=== PATIENT | male | born 1975 | race Asian ===

== ENCOUNTER → 2021-03-23 16:04 | Outpatient (CLI) | payer BC, SELFPAY | PROVIDERS: PCP Family Medicine; Visit Provider Nurse Practitioner | DX: Z20.822 Contact with and (suspected) exposure to COVID-19 (principal) | CPT/HCPCS: C9803; U0003; U0005 ==

== ENCOUNTER → 2021-03-27 13:19 | Outpatient (CLI) | payer BC, SELFPAY | PROVIDERS: Visit Provider Nurse Practitioner | DX: Z20.822 Contact with and (suspected) exposure to COVID-19 (principal) | CPT/HCPCS: C9803; U0003; U0005 ==

== ENCOUNTER 2021-03-27 13:26 | Emergency (ER) | payer BC, SELFPAY ==
[2021-03-27 13:26] VITALS: BP 159/100; PULSE 112; RESP 18; TEMP 37.1; O2SAT 99; BMI 27.3
--- NOTE | 2021-03-27 14:00 | PC.NURSE ---
DR SPOKE WITH PT REGARDING REGEN-COV INFUSION. PT IS SPEAKING WITH
--- NOTE | 2021-03-27 14:17 | HMH.EDUTC ---
[facility] [place] Disposition Condition on Discharge: Good <Isaias Franks - Last Filed: 03/27/21 21:19> Condition on Discharge: Fair <Diana Monet - Last Filed: 03/27/21 22:27> Clinical Impression: Urinary tract infection Qualifiers: Urinary tract infection type: acute cystitis Hematuria presence: with hematuria Qualified Code(s): N30.01 - Acute cystitis with hematuria Disposition: Home, Self-Care Prescriptions: Cefdinir [Omnicef 300mg Capsule] 300 mg PO BID #14 cap Transmission Status: Received by [facility] #[id number] Referrals: Provider,Referral, [Primary Care Provider] - Medical Decision Making - Lab Data Result diagrams: 03/27/21 15:05 03/27/21 15:05 <Isaias Franks - Last Filed: 03/27/21 21:19> - Suman Inquiry Pt receiving controlled substance: No Suman was queried for this patient: No - Lab Data Result diagrams: 03/27/21 15:05 03/27/21 15:05 <Diana Monet - Last Filed: 03/27/21 22:27> Vital Signs: 03/27/21 13:26 03/27/21 14:46 03/27/21 16:44 Temperature 98.8 F 98.4 F Temperature Source Oral Oral Pulse Rate 110 H Pulse Rate [Left Radial] 112 H 102 H Respiratory Rate 18 18 16 Blood Pressure 141/93 H Blood Pressure [Right Arm] 159/100 H 152/85 H Blood Pressure Mean 109 Blood Pressure Mean [Right Arm] 119 107 Blood Pressure Source [Right Arm] Automatic Cuff Automatic Cuff Blood Pressure Position Blood Pressure Position [Right Arm] Sitting Sitting 02 Sat by Pulse Oximetry 99 100 98 Oxygen Delivery Method Room Air Room Air Room Air 03/27/21 17:00 03/27/21 19:16 Temperature 98.4 F Temperature Source Oral Pulse Rate 107 H 107 H Pulse Rate [Left Radial] Respiratory Rate 16 18 Blood Pressure 147/87 H 147/87 H Blood Pressure [Right Arm] Blood Pressure Mean 108 Blood Pressure Mean [Right Arm] Blood Pressure Source [Right Arm] Blood Pressure Position Sitting Blood Pressure Position [Right Arm] 02 Sat by Pulse Oximetry 98 Oxygen Delivery Method Room Air Room Air - Lab Data Lab Results 03/27/21 14:39: SARS-CoV-2 (PCR) Not detected, Influenza A Untype (PCR) Not detected, Influenza Type B (PCR) Not detected 03/27/21 15:05: WBC 20.9 H*, RBC 4.74, Hgb 13.8 L, Hct 41.2 L, MCV 86.9, MCH 29.1, MCHC 33.4, RDW 14.4, Plt Count 241, MPV 8.5, Neut % (Auto) 86.0 H, Lymph % (Auto) 8.4 L, Yell % (Auto) 4.7, Eos % (Auto) 0.5, Baso % (Auto) 0.3, Neut # (Auto) 17.9 H, Lymph # (Auto) 1.8, Yell # (Auto) 1.0, Eos # (Auto) 0.1, Baso # (Auto) 0.1, Total Counted 100, Neutrophils % (Manual) 82 H, Lymphocytes % (Manual) 14, Monocytes % (Manual) 4, Platelet Estimate Normal, Microcytosis 1+ 03/27/21 15:05: Sodium 137, Potassium 4.0, Chloride 99, Carbon Dioxide 29, Anion Gap 13.0, BUN 8 L, Creatinine 0.90, Estimated Creat Clear 106, Estimated GFR 91, Est GFR ( Amer) 110, Glucose 110 H, Calcium 9.0, Total Bilirubin 2.0 H, AST 24, ALT 20, Alkaline Phosphatase 67, Total Protein 7.5, Albumin 4.3, Globulin 3.2, Albumin/Globulin Ratio 1.3 03/27/21 16:35: Urine Color Yellow, Urine Appearance Sl cloudy, Urine pH 6.5, Ur Specific [place] <= 1.005, Urine Protein Negative, Urine Glucose (UA) Negative, Urine Ketones Negative, Urine Blood 2+, Urine Nitrate Negative, Urine Bilirubin Negative, Urine Urobilinogen 0.2, Ur Leukocyte Esterase 2+ A, Urine RBC 10-20, Urine WBC 20-50, Ur Squamous Epith Cells 3-5, Urine Bacteria 3+ Orders (Tests/Meds): ED MEDICATIONS Discontinued Medications Generic Name Dose Route Start Last Admin Trade Name Freq PRN Reason Stop Dose Admin Iopamidol 90 ml 03/27/21 15:44 03/27/21 15:45 Iopamidol-370 (76%);100ml Bottle IV 03/27/21 15:45 90 ml ONCE ONE Administration Sodium Chloride 10 ml 03/27/21 15:44 03/27/21 15:44 Sodium Chloride 0.9% 10ml Syr (Rad Only) IV 03/27/21 15:45 10 ml ONCE ONE Administration ORDERS Category Date Time Status Urine Culture Stat Micro 03/27/21 16:35 Received Medical Decision Narrative: Separate do
--- NOTE | 2021-03-27 14:19 | PC.NURSE ---
CLINICAL NURSE LEADER talked with ER nurse, pt to be transferred to bed 11 for syncopal episode x2 yesterday and just not acting right.
[2021-03-27 14:46] VITALS: BP 152/85; PULSE 102; RESP 18; TEMP 36.9; O2SAT 100; BMI 24.3
--- NOTE | 2021-03-27 14:47 | CT_ITS ---
PROCEDURE INFORMATION: Exam: CT Angiography Head With Contrast, Arteriography Exam date and time: 03/27/2021 2:47 PM Age: 45 years old Clinical indication: Other: Blurred vision; Additional info: Headache, blurry vision TECHNIQUE: Imaging protocol: Computed tomography angiography of the head with contrast. Exam focused on the arteries. 3D rendering (Not supervised by radiologist): MIP and/or 3D reconstructed images were created by the technologist. Radiation optimization: All CT scans at this facility use at least one of these dose optimization techniques: automated exposure control; mA and/or kV adjustment per patient size (includes targeted exams where dose is matched to clinical indication); or iterative reconstruction. Contrast material: ISOUVE 370; Contrast volume: 100 ml; Contrast route: INTRAVENOUS (IV); COMPARISON: CT HEAD/BRAIN WO CON 03/27/2021 3:26 PM FINDINGS: ANTERIOR CIRCULATION: Right internal carotid artery: Unremarkable. Intracranial segment is patent with no significant stenosis. No aneurysm. Right middle cerebral artery: Unremarkable. No occlusion or significant stenosis. No aneurysm. Right anterior cerebral artery: Unremarkable. No occlusion or significant stenosis. No aneurysm. Left internal carotid artery: Unremarkable. Intracranial segment is patent with no significant stenosis. No aneurysm. Left middle cerebral artery: Unremarkable. No occlusion or significant stenosis. No aneurysm. Left anterior cerebral artery: The left A1 segment is either congenitally absent, severely hypoplastic or occluded, not well seen. The left A2 segment appears normal, and is supplied via a patent anterior communicating artery, from the right. No aneurysm. POSTERIOR CIRCULATION: Right vertebral artery: Unremarkable. No occlusion or significant stenosis. No aneurysm. Left vertebral artery: Unremarkable. No occlusion or significant stenosis. No aneurysm. Basilar artery: Unremarkable. No occlusion or significant stenosis. No aneurysm. Right posterior cerebral artery: Unremarkable. No occlusion or significant stenosis. No aneurysm. Left posterior cerebral artery: No acute findings. No occlusion or high-grade stenosis. 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 No aneurysm. Brain: No definite mass, mass effect, or midline shift. Cerebral ventricles: No ventriculomegaly. Orbital cavity: Abnormal right globe, please see the earlier head CT report. No abnormal enhancing lesions are seen within the orbits. Bones/joints: Unremarkable. No acute fracture. Soft tissues: Unremarkable. IMPRESSION: 1. 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 2. No other arterial occlusion or significant stenosis. 3. No aneurysm. 4. Additional nonemergency and chronic findings as above.
--- NOTE | 2021-03-27 14:47 | CT_ITS ---
PROCEDURE INFORMATION: Exam: CT Head Without Contrast Exam date and time: 03/27/2021 2:47 PM Age: 45 years old Clinical indication: Other: Blurred vision; Additional info: Headache, blurry vision TECHNIQUE: Imaging protocol: Computed tomography of the head without contrast. Radiation optimization: All CT scans at this facility use at least one of these dose optimization techniques: automated exposure control; mA and/or kV adjustment per patient size (includes targeted exams where dose is matched to clinical indication); or iterative reconstruction. COMPARISON: No relevant prior studies available. FINDINGS: Brain: No acute intracranial findings. No intracranial hemorrhage. No edema, swelling or mass-effect. No significant white matter disease. Cerebral ventricles: The ventricles are normal for age. No hydrocephalus. Paranasal sinuses: No acute findings in the visualized sinuses. No significant sinus opacification or air-fluid levels. Mild bilateral ethmoid mucosal thickening. Mastoid air cells: The mastoids appear sclerotic and poorly pneumatized on a chronic basis. No acute effusion. Orbital cavity: There is asymmetry of the globes, the right appears enlarged compared with left measuring approximately 3 x 2.7 cm on series 3, image 13, compared with 2.5 x 2.5 cm on the left. The right globe appears elongated in AP diameter. There is slight posterolateral bulging of the globe on the right series 3, image 14. This is worrisome for posterior staphyloma. No discrete intra-ocular mass lesion or definite hemorrhage is visible. Some heterogeneous signal in both globes appears to be due to streak artifacts. Correlate with ophthalmology exam, and MRI would also be more accurate for evaluation of intraorbital pathology. Primary differential considerations would include axial myopia, versus increased pressure/glaucoma. Note this can also be seen with a variety of disorders including Proteus syndrome, collagen disorders, neurofibromatosis type 1. The smaller left globe is presumed to be a normal globe. Vasculature: Minimal calcified atherosclerotic plaques in the intracranial carotid and vertebral arteries. Bones/joints: No acute skull fracture. No lytic lesions. Soft tissues: There are no soft tissue masses or fluid collections. IMPRESSION: 1. 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 Recommend ophthalmology consult. 2. No acute intracranial findings. 3. There is no CT evidence of intracranial mass, intracranial hemorrhage, or acute infarct. 4. Additional nonemergency and chronic findings as above.
--- NOTE | 2021-03-27 14:47 | CT_ITS ---
PROCEDURE INFORMATION: Exam: CT Angiography Neck With Contrast Exam date and time: 03/27/2021 2:47 PM Age: 45 years old Clinical indication: Other: Blurred vision; Additional info: Headache, blurry vision TECHNIQUE: Imaging protocol: Computed tomography angiography of the neck with contrast. 3D rendering (Not supervised by radiologist): MIP and/or 3D reconstructed images were created by the technologist. Radiation optimization: All CT scans at this facility use at least one of these dose optimization techniques: automated exposure control; mA and/or kV adjustment per patient size (includes targeted exams where dose is matched to clinical indication); or iterative reconstruction. Contrast material: ISOVUE 370; Contrast volume: 100 ml; Contrast route: INTRAVENOUS (IV); COMPARISON: CT HEAD/BRAIN WO CON 03/27/2021 3:26 PM FINDINGS: Right common carotid artery: No stenosis. No dissection or occlusion. Right internal carotid artery: No stenosis of the extracranial segment. No dissection or occlusion. Right external carotid artery: No occlusion or stenosis of the origin. Left common carotid artery: No stenosis. No dissection or occlusion. Left internal carotid artery: No stenosis of the extracranial segment. No dissection or occlusion. Left external carotid artery: No occlusion or stenosis of the origin. Right vertebral artery: No stenosis. No dissection or occlusion. Left vertebral artery: No stenosis. No dissection or occlusion. Paranasal sinuses: Mild chronic sinusitis, mild bilateral ethmoid sinus mucosal thickening. Lobulated thickened mucosa versus small underlying polyps or mucous retention cysts at the floor of the left maxillary sinus. No acute air-fluid levels, as visualized. Thyroid: Heterogeneous lower pole of thyroid gland, which is probably due to technical artifacts/streak artifacts. Can't exclude tiny nodules of up to 11 mm, see coronal series 4, images 63-64, but there is no significantly enlarged or calcified nodule requiring follow-up per ACR guidelines below. Soft tissues: There are no soft tissue masses or fluid collections. Bones/joints: No acute fracture. Mild spinal degenerative changes, multilevel disc narrowing and spondylosis in the visualized cervical and thoracic spine. No acute fracture or significant listhesis. Mild spinal stenosis C4-C5, and mild bilateral C5 foraminal narrowing. Lungs: No acute findings in the lung apices. Some streak artifacts. IMPRESSION: No stenosis or occlusion. Additional nonemergency and chronic findings as above. COMMENTS: Consistent with the [employer]'s Incidental Findings Committee white paper (J Am Aldo Radiol 2015): In patients aged 35 years and older with an incidental thyroid nodule equal to or greater than 1.[address], MRI or extrathyroidal US, further evaluation with dedicated thyroid US is recommended for patients with normal life expectancy and without comorbidities. For smaller nodules without suspicious features, no further evaluation or follow up is recommended. REFERENCES: NASCET CRITERIA. The degree of internal carotid artery stenosis is based on NASCET criteria. Normal is no stenosis. Mild is less than 50% stenosis. Moderate is 50-69% stenosis. Severe is 70% to 99% stenosis. Total occlusion is no detectable patent lumen.
[2021-03-27 14:58] LABS: Coronavirus 19, PCR Not Detected (NotDetected); Influenza A, PCR Not Detected (NotDetected); Influenza B, PCR Not Detected (NotDetected)
--- NOTE | 2021-03-27 15:00 | HMH.EDGENADL ---
ED Disposition Clinical Impression: Urinary tract infection Qualifiers: Urinary tract infection type: acute cystitis Hematuria presence: with hematuria Qualified Code(s): N30.01 - Acute cystitis with hematuria Disposition: Home, Self-Care Condition on Discharge: Good Prescriptions: Cefdinir [Omnicef 300mg Capsule] 300 mg PO BID #14 cap Transmission Status: Pending to [facility] #[id number] Referrals: Provider,Referral, [Primary Care Provider] - - Critical Care Critical Care Time: No Attestation: On 03/27/21, the high probability of a clinically significant, sudden or life threatening deterioration of the following system(s) required my full and direct attention, intervention and personal management. The time I documented below is in addition to time spent performing reported procedures but includes the following listed in this critical care notation. Medical Decision Making - Medical Records Medical records reviewed: Yes: I reviewed the patient's medical records. - Suman Inquiry Pt receiving controlled substance: No Vital Signs: 03/27/21 13:26 03/27/21 14:46 03/27/21 16:44 Temperature 98.8 F 98.4 F Temperature Source Oral Oral Pulse Rate 110 H Pulse Rate [Left Radial] 112 H 102 H Respiratory Rate 18 18 16 Blood Pressure 141/93 H Blood Pressure [Right Arm] 159/100 H 152/85 H Blood Pressure Mean 109 Blood Pressure Mean [Right Arm] 119 107 Blood Pressure Source [Right Arm] Automatic Cuff Automatic Cuff Blood Pressure Position [Right Arm] Sitting Sitting 02 Sat by Pulse Oximetry 99 100 98 Oxygen Delivery Method Room Air Room Air Room Air 03/27/21 17:00 Temperature Temperature Source Pulse Rate 107 H Pulse Rate [Left Radial] Respiratory Rate 16 Blood Pressure 147/87 H Blood Pressure [Right Arm] Blood Pressure Mean 108 Blood Pressure Mean [Right Arm] Blood Pressure Source [Right Arm] Blood Pressure Position [Right Arm] 02 Sat by Pulse Oximetry 98 Oxygen Delivery Method Room Air - Lab Data Lab Results 03/27/21 14:39: SARS-CoV-2 (PCR) Not detected, Influenza A Untype (PCR) Not detected, Influenza Type B (PCR) Not detected 03/27/21 15:05: WBC 20.9 H*, RBC 4.74, Hgb 13.8 L, Hct 41.2 L, MCV 86.9, MCH 29.1, MCHC 33.4, RDW 14.4, Plt Count 241, MPV 8.5, Neut % (Auto) 86.0 H, Lymph % (Auto) 8.4 L, [place] % (Auto) 4.7, Eos % (Auto) 0.5, Baso % (Auto) 0.3, Neut # (Auto) 17.9 H, Lymph # (Auto) 1.8, [place] # (Auto) 1.0, Eos # (Auto) 0.1, Baso # (Auto) 0.1, Total Counted 100, Neutrophils % (Manual) 82 H, Lymphocytes % (Manual) 14, Monocytes % (Manual) 4, Platelet Estimate Normal, Microcytosis 1+ 03/27/21 15:05: Sodium 137, Potassium 4.0, Chloride 99, Carbon Dioxide 29, Anion Gap 13.0, BUN 8 L, Creatinine 0.90, Estimated Creat Clear 106, Estimated GFR 91, Est GFR ( Amer) 110, Glucose 110 H, Calcium 9.0, Total Bilirubin 2.0 H, AST 24, ALT 20, Alkaline Phosphatase 67, Total Protein 7.5, Albumin 4.3, Globulin 3.2, Albumin/Globulin Ratio 1.3 03/27/21 16:35: Urine Color Yellow, Urine Appearance Sl cloudy, Urine pH 6.5, Ur Specific [place] <= 1.005, Urine Protein Negative, Urine Glucose (UA) Negative, Urine Ketones Negative, Urine Blood 2+, Urine Nitrate Negative, Urine Bilirubin Negative, Urine Urobilinogen 0.2, Ur Leukocyte Esterase 2+ A, Urine RBC 10-20, Urine WBC 20-50, Ur Squamous Epith Cells 3-5, Urine Bacteria 3+ Result diagrams: 03/27/21 15:05 03/27/21 15:05 Orders (Tests/Meds): ED MEDICATIONS Discontinued Medications Generic Name Dose Route Start Last Admin Trade Name Freq PRN Reason Stop Dose Admin Iopamidol 90 ml 03/27/21 15:44 03/27/21 15:45 Iopamidol-370 (76%);100ml Bottle IV 03/27/21 15:45 90 ml ONCE ONE Administration Sodium Chloride 10 ml 03/27/21 15:44 03/27/21 15:44 Sodium Chloride 0.9% 10ml Syr (Rad Only) IV 03/27/21 15:45 10 ml ONCE ONE Administration ORDERS Category Date Time Status Chlamydia pneumoniae,PCR Stat Lab
--- NOTE | 2021-03-27 15:12 | XR_ITS ---
PROCEDURE: XR CHEST PORTABLE CLINICAL HISTORY: cough, fever, chest congestion COMPARISON: No exams were available for comparison FINDINGS: This is a poor inspiration. Cardiac size is normal and vascularity is normal. The lungs are clear without infiltrates, suspicious nodules, or pleural effusions. There may be minimal discoid atelectasis at the left base. No acute bony abnormalities. IMPRESSION: Poor inspiration, no other significant abnormality seen Dictated by: Dr. Jimmie Jordan MD 03/27/2021 15:36 Dr. Jimmie Jordan MD in [place] 03/27/2021 15:36
[2021-03-27 15:13] LABS: Basophils # 0.1 K/mm3 (0-0.2); Basophils % 0.3 % (0.1-2.0); Eosinophils # 0.1 K/mm3 (0.0-0.4); Eosinophils % 0.5 % (0.1-12.0); Hematocrit 41.2 % (42.0-52.0); Hemoglobin 13.8 g/dL (14.1-18.0); Lymphocytes # 1.8 K/mm3 (0.7-4.5); Lymphocytes % 8.4 % (10-50); Mean Corpuscular HGB Conc 33.4 g/dL (31.8-35.4); Mean Corpuscular Hemoglobin 29.1 pg (27.0-31.2); Mean Corpuscular Volume 86.9 fl (80-94); Mean Platelet Volume 8.5 fl (7.4-10.4); Monocytes % 4.7 % (1.7-9.3); Neutrophils # 17.9 K/mm3 (1.8-7.8); Platelet Count 241 K/mm3 (142-424); Red Blood Count 4.74 M/mm3 (4.60-6.20); Red Cell Distribution Width 14.4 % (11.5-17.5); White Blood Count 20.9 K/mm3 (4.8-10.8)
[2021-03-27 15:21] LABS: Chloride 99 mmol/L (98-107)
[2021-03-27 15:22] LABS: Sodium 137 mmol/L (136-145)
[2021-03-27 15:24] LABS: Alanine Aminotransferase 20 U/L (12-78); Aspartate Amino Transferase 24 U/L (17-59); Blood Urea Nitrogen 8 mg/dl (9-20); Creatinine Clearance Estimated 106 mL/min (50-200); Estimated Glomerular Filt Rate 91 ml/min (>60); GFR (African American) 110 ML/MIN (>60); MANUAL DIFFERENTIAL MANUAL DIFFERENTIAL (MANUAL DIFF)
[2021-03-27 15:25] LABS: Albumin Level 4.3 g/dl (3.5-5.0); Albumin/Globulin Ratio 1.3 (1.1-1.8); Alkaline Phosphatase 67 U/L (38-126); Carbon Dioxide 29 mmol/L (22.0-30.0); Globulin 3.2 g/dL (1.3-3.2); Glucose 110 mg/dl (74-100); Total Protein,Serum 7.5 g/dl (6.3-8.2)
--- NOTE | 2021-03-27 15:28 | PC.NURSE ---
pt in radiology
[2021-03-27 16:09] LABS: Lymphocytes % 14 % (10-50); Microcytosis 1+; Monocytes % 4 % (2-9); Neutrophils % 82 % (42-76); Platelet Estimate Normal; Total Cells Counted 100
[2021-03-27 16:44] VITALS: BP 141/93; PULSE 110; RESP 16; O2SAT 98
[2021-03-27 16:46] LABS: Microscopic, Urine URINE MICROSCOPIC (MICROSCOPIC)
[2021-03-27 16:57] LABS: Appearance,Urine SL CLOUDY (Clear); Bilirubin,Urine Negative (Negative); Blood, Urine 2+ (Negative); Color,Urine YELLOW (Yellow); Glucose,Urine (UA) Negative (Negative); Ketones,Urine Negative (Negative); Leukocyte Esterase,Urine 2+ (Negative); Nitrate,Urine Negative (Negative); PH,Urine 6.5 (5.0-8.5); Protein,Urine Negative (Negative); Specific Gravity, Urine <= 1.005 (1.005-1.030); Urobilinogen,Urine 0.2 EU/dl (0.2)
[2021-03-27 17:00] VITALS: BP 147/87; PULSE 107; RESP 16; O2SAT 98
[2021-03-27 17:08] LABS: Bacteria,Urine 3+ /lpf; WBC,Urine 20-50 #/hpf (0-3)
--- NOTE | 2021-03-27 17:23 | PC.NURSE ---
contacted radiology to check on status of CT readings, rad staff states its in the to be assigned column for [facility]. Rad staff states they will contact [facility] to check on it. updated ER of the above
[2021-03-27 19:16] VITALS: BP 112/65; BP 147/87; PULSE 107; PULSE 78; RESP 18; RESP 20; TEMP 36.6; TEMP 36.9; O2SAT 96; O2SAT 98
[2021-03-29 22:40] LABS: Neisseria gonorrhoeae, NAA Negative (Negative)
== END 2021-03-27 18:10 | disposition home or self-care (01) ==
LOC: UTC 13:29 → ER 14:26
PROVIDERS: Emergency Provider Student in an Organized Health Care Education/Training Program
DX: N30.01 Acute cystitis with hematuria (principal); Z20.822 Contact with and (suspected) exposure to COVID-19
CPT/HCPCS: 70450; 70496; 70498; 71045; 80053; 81001; 85007; 85025; 87086; 87088; 87186; 87491; 87591; 99283; C9803; Q9967; U0003; U0005

== ENCOUNTER → 2021-04-05 14:33 | Outpatient (CLI) | payer BC, SELFPAY | PROVIDERS: Visit Provider Nurse Practitioner | DX: Z20.822 Contact with and (suspected) exposure to COVID-19 (principal) | CPT/HCPCS: C9803; U0003; U0005 ==

== ENCOUNTER → 2021-06-18 15:06 | Outpatient (CLI) | payer BC, SELFPAY | PROVIDERS: Visit Provider Nurse Practitioner | DX: U07.1 COVID-19 (principal) | CPT/HCPCS: C9803; U0003; U0005 ==

== ENCOUNTER → 2021-09-11 13:52 | Outpatient (POV) | payer BC, SELFPAY | PROVIDERS: Visit Provider Dermatology | DX: Z00.00 Encounter for general adult medical examination without abnormal findings (principal) ==

== ENCOUNTER 2022-05-25 18:46 | Emergency (ER) | payer BC, SELFPAY ==
[2022-05-25 18:50] VITALS: BP 141/92; PULSE 108; RESP 19; TEMP 36.9; O2SAT 99; BMI 23.6
[2022-05-25 19:03] VITALS: BP 141/92; PULSE 108; RESP 19; TEMP 36.9; O2SAT 99
--- NOTE | 2022-05-25 19:06 | EXP.UTC ---
Discharge Plan Disposition Patient Disposition: Home, Self-Care Condition: Good Prescriptions Prescriptions: New pqnnnnukeycrzjg-reujcnueg-BK [Bromfed DM] 2-30-10 mg/5 mL Syrup 10 ml PO Q4H PRN (Reason: Cough) Qty: 200 0RF No Action cefdinir 300 MG capsule 300 mg PO BID Qty: 14 0RF Referrals Follow up/Referrals: Provider,Referral, MD [Primary Care Provider] - See instructions Activity Restrictions/Add. Instructions Additional Instructions/Restrictions: *Monitor Temp, Over the counter Motrin or Tylenol as directed/as needed Tylenol every 4 hours and Motrin every 6 hours (as long as your family doctor has told you that you can take it) for fever or pain. and straight to ER if unable to lower temp less than 101.0 after medication given *Warm salt water gargles may help to soothe the throat *Throat Lozenges? *Warm fluids like tea with honey may help to soothe the throat? *Sleep elevated *Humidifier/Vaporizer Follow up IMMEDIATELY for new or worsening symptoms or no Noticeable improvement over the next 48-72 hours. 911 for difficulty breathing or swallowing You were tested for today for COVID19 your test result should be back in the next 24-48 hours, you may check your results on the [facility] Clinical Impressions Clinical Impression: Viral syndrome Instructions Patient Instructions: DI for Viral Syndrome, Coronavirus Disease 2019 Discharge ED Provider: Diana Monet [facility] [place] HPI General Stated complaint: exposed to covid, cough,[place] Mode of Arrival: Ambulatory Source of Information: Patient Limitations: No Limitations Time Seen by Provider: 05/25/22 19:06 Description of Symptoms (Recalled from Triage Doc. by RN): PATIENT C/O HEADACHE, CHEST CONGESTION, FEVER, AND BODY ACHES. REPORTS A POSITIVE AT HOME COVID TEST HEENT Symptoms (Recalled from RN notes): Yes Resp Symptoms (Recalled from RN notes): No Skin Symptoms (Recalled from RN notes): No MS Symptoms (Recalled from RN notes): No Functional Status (Recalled from RN notes): WNL History of Present Illness Provider Complaint: Patient states that he was around someone on Friday that tested positive for COVID states that he started having cough, fever, body aches and chest congestion but not coughing anything up States he took home COVID test and it was positive so he came in to get tested here Related Data Previous Rx's Medication Instructions Recorded cefdinir 300 mg capsule 300 mg PO BID #14 caps 03/27/21 azzvprjruuourvr-mbtlawilwkfubbq-PQ 10 ml PO Q4H PRN Cough #200 mL 05/25/22 2 mg-30 mg-10 mg/5 mL oral syrup (Bromfed DM) Allergies Allergy/AdvReac Type Severity Reaction Status Date / Time No Known Allergies Allergy Verified 03/27/21 13:56 Worker's Comp Is this a Worker's Comp case?: No [facility] Disclaimer: The information contained in this section may have been updated after the patient was seen, as this information can be updated by other users. Medical History (Updated 05/25/22 @ 19:11 by Diana Monet APRN) Asthma Hyperlipidemia Urinary tract infection Social History (Updated 05/25/22 @ 19:03 by Belen Lopez RN) Smoking Status: Unknown if ever smoked alcohol intake: never current occupational status: other Travel in the last 8 weeks: None ROS Obtained: Yes All systems reviewed & no additional complaints except as documented and Yes Systems reviewed as appropriate & no additional complaints except as documented Constitutional Constitutional: Reports system reviewed and no additional complaints, except as documented and Reports as per HPI ENT Ears, Nose, Mouth, and Throat: Reports system reviewed and no additional complaints, except as documented, Reports as per HPI, Reports nasal congestion and Reports nasal discharge Cardiovascular Cardiovascular: Reports system reviewed and no additional complaints, except as documented and Reports as per HPI Respiratory Resp
== END 2022-05-25 19:17 | disposition home or self-care (01) ==
PROVIDERS: Emergency Provider Nurse Practitioner
DX: U07.1 COVID-19 (principal)
CPT/HCPCS: 99212; C9803; G0463; U0003; U0005

== ENCOUNTER 2023-12-13 10:12 | Emergency (ER) | payer BC, SELFPAY ==
[2023-12-13 10:20] VITALS: BP 129/89; PULSE 82; RESP 19; TEMP 37.4; O2SAT 96; BMI 23.6
[2023-12-13 10:40] LABS: UTC Strep Screen (Rapid) Negative (Negative)
--- NOTE | 2023-12-13 10:49 | ED_ITS ---
Discharge Plan Disposition Patient Disposition: Home, Self-Care Condition: Good Prescriptions Prescriptions: New prednisone 20 mg tablet 20 mg PO BID Qty: 10 0RF No Action atorvastatin 40 mg Tablet 40 mg PO DAILY Referrals Follow up/Referrals: Sundeep Woodson MD [Primary Care Provider] - See instructions Activity Restrictions/Add. Instructions Additional Instructions/Restrictions: No sign of a bacterial infection. Likely viral. Viruses can take 7-14 days to run their course. Nasal saline and bulb syringe or nose Candi to remove nasal drainage to help with nasal congestion. Hard to eat, drink, sleep with nasal congestion so important to keep this cleaned out. Monitor temp. Tylenol or Motrin as needed for pain or fever Encourage fluids, water, Gatorade, Powerade, Pedialyte if /toddler/child Warm salt water gargles Warm fluids Sore throat lozenges Sleep elevated Humidifier/vaporizer Follow-up immediately for new or worsening symptoms or no noticeable improvement over the next 48-72 hours. Clinical Impressions Clinical Impression: Acute bronchitis Qualifiers: Bronchitis organism: other organism Qualified Code(s): J20.8 - Acute bronchitis due to other specified organisms Upper respiratory infection Qualifiers: URI type: unspecified viral URI Qualified Code(s): J06.9 - Acute upper respiratory infection, unspecified Instructions Patient Instructions: DI for Acute Bronchitis, DI for Viral Upper Respiratory Infection -- Adult Discharge ED Provider: Juan ([facility])[place] [facility] [place] General Stated complaint: cough body ache dizziness sore throat congestion Mode of Arrival: Ambulatory Source of Information: Patient Limitations: No Limitations Time Seen by Provider: 12/13/23 10:40 Description of Symptoms (Recalled from Triage Doc. by RN): PATIENT C/O COUGH, BODY ACHES, DIZZINESS, SORE THROAT AND HEADACHE SINCE YESTERDAY HEENT Symptoms (Recalled from RN notes): Yes Resp Symptoms (Recalled from RN notes): Yes Skin Symptoms (Recalled from RN notes): No MS Symptoms (Recalled from RN notes): No Functional Status (Recalled from RN notes): WNL History of Present Illness Provider Complaint: 48 yr old male presents for c/o cough, body ache, dizziness, sore throat,and congestion x 2 days Related Data Home Medications Medication Instructions Recorded Confirmed atorvastatin 40 mg tablet 40 mg PO DAILY 07/13/24 07/13/24 Previous Rx's Medication Instructions Recorded prednisone 20 mg tablet 20 mg PO BID #10 tabs 12/13/23 Allergies Allergy/AdvReac Type Severity Reaction Status Date / Time No Known Allergies Allergy Verified 03/27/21 13:56 Worker's Comp Is this a Worker's Comp case?: No [facility] Disclaimer: The information contained in this section may have been updated after the patient was seen, as this information can be updated by other users. Medical History , DRUG REGULATORY AFFAIRS SPECIALIST) Urinary tract infection Asthma Hyperlipidemia Social History , DRUG REGULATORY AFFAIRS SPECIALIST) Smoking Status: Unknown if ever smoked alcohol intake: never current occupational status: other Travel in the last 8 weeks: None ROS Obtained: Yes All systems reviewed & no additional complaints except as documented Constitutional Constitutional: Reports system reviewed and no additional complaints, except as documented Eyes Eyes: Reports system reviewed and no additional complaints, except as documented ENT Ears, Nose, Mouth, and Throat: Reports system reviewed and no additional complaints, except as documented, Reports as per HPI, Reports nasal congestion, Reports nasal discharge, Reports post nasal drip, Reports sinus pain, Reports sore throat and Reports vertigo Cardiovascular Cardiovascular: Reports system reviewed and no additional complaints, except as documented Respiratory Respiratory: Reports system reviewed and no additional complaints, except as documented, Reports as per HPI, Reports cough and Reports non-productive cough Gastrointestinal Gastrointestingal: Reports system reviewed and no additional complaints, except as documented Musculoskeletal Musculoskeletal: Reports system reviewed and no additional complaints, except as documented Integumentary/Breasts Skin/Breast: Reports system reviewed and no additional complaints, except as documented Neurologic Neurologic: Reports system reviewed and no additional complaints, except as documented and Reports vertigo Hematologic/Lymphatic Henatologic/Lymphatic: Reports system reviewed and no additional complaints, except as documented Allergic/Immunologic Allergic/Immunologic: Reports system reviewed and no additional complaints, except as documented Physical Exam General General appearance: alert and in no apparent distress ENT ENT exam: Present normal exam, normal oropharynx, mucous membranes moist and TM's normal bilaterally Respiratory Respiratory exam: Present wheezes Cardiovascular Cardiovascular exam: Present regular rate and normal rhythm Abdominal Exam Abdominal exam: Present soft and normal bowel sounds Neurological Exam Neurological exam: Present alert and oriented X3 Lymphatic Lymphatic Findings: no adenopathy Medical Decision Making Medical Records Medical records reviewed: Yes I reviewed the patient's medical records. Suman Inquiry Pt receiving controlled substance: No Suman was queried for this patient: No Vital Signs: 12/13/23 10:20 Temperature 99.3 F Temperature Source Oral Pulse Rate [Left Brachial] 82 Respiratory Rate 19 Blood Pressure [Left Arm] 129/89 Blood Pressure Mean [Left Arm] 102 Blood Pressure Source [Left Arm] Automatic Cuff Blood Pressure Position [Left Arm] Sitting 02 Sat by Pulse Oximetry 96 Oxygen Delivery Method Room Air Lab Data Lab results reviewed: Yes I reviewed the patient's lab results. Lab Results 12/13/23 10:28: Strep Scn Rapid Clinic Negative Orders (Tests/Meds): ORDERS Category Date Time Status Strep Screen Confirmation Stat Micro 12/13/23 10:28 Received
[2023-12-13 10:59] LABS: UTC Influenza A Antigen Negative (Negative); UTC Influenza B Antigen Negative (Negative)
[2023-12-13 11:05] VITALS: BP 129/89; PULSE 82; RESP 19; TEMP 37.4; O2SAT 96
== END 2023-12-13 11:07 | disposition home or self-care (01) ==
PROVIDERS: Emergency Provider Nurse Practitioner Family; PCP Family Medicine
DX: J02.8 Acute pharyngitis due to other specified organisms (principal); R05.9 Cough, unspecified; R42 Dizziness and giddiness; J06.9 Acute upper respiratory infection, unspecified; R09.81 Nasal congestion
CPT/HCPCS: 87804; 87880; 99212; 99214; G0463

== ENCOUNTER 2023-12-23 20:49 | Emergency (ER) | payer BC, SELFPAY ==
[2023-12-23 20:52] VITALS: BP 155/104; PULSE 83; RESP 16; TEMP 36.6; O2SAT 100; BMI 23.6
--- NOTE | 2023-12-23 20:54 | HMH.EDGENADL ---
Discharge Plan Disposition Patient Disposition: Home, Self-Care Condition: Good Prescriptions Prescriptions: New amoxicillin-pot clavulanate 875-125 mg tablet 1 tab PO BID Qty: 20 0RF azithromycin 500 mg tablet See Rx Instructions .ROUTE .COMPLEX Qty: 9 0RF Rx Instructions: For 250 mg dose pack: take 500 mg today (day 1), then 250 mg for 4 days (days 2-5) albuterol sulfate 90 mcg/actuation HFA aerosol inhaler 7 inh inhalation Q2H PRN (Reason: shortness of breath or wheezing) Qty: 6.7 0RF Rx Instructions: until breathing returns to target peak flow/parameters [id number] [Bromfed DM] 2-30-10 mg/5 mL syrup 5 ml PO Q6H PRN (Reason: cold symptoms) Qty: 118 0RF prednisone 50 mg tablet 50 mg PO DAILY 7 Days Qty: 7 0RF No Action atorvastatin 40 mg Tablet 40 mg PO DAILY prednisone 20 mg tablet 20 mg PO BID Qty: 10 0RF Referrals Follow up/Referrals: Sundeep Woodson MD [Primary Care Provider] - See instructions Activity Restrictions/Add. Instructions Additional Instructions/Restrictions: Follow-up with your PCP within 48 hours to recheck your condition. Return to ER for any worsening signs or symptoms as needed. Clinical Impressions Clinical Impression: Acute lower respiratory tract infection Urinary tract infection Qualifiers: Urinary tract infection type: acute cystitis Hematuria presence: with hematuria Qualified Code(s): N30.01 - Acute cystitis with hematuria Discharge ED Provider: Quoc Tan General Adult HPI <VERONICA Jones - Last Filed: 12/23/23 23:20> General Chief complaint: Upper Respiratory Infection Stated complaint: cough, [place] Time Seen by Provider: 12/23/23 20:54 History of Present Illness HPI narrative: Patient presents for evaluation of cough. Patient has had a cough now for 11 days and his cough subjectively is getting worse. He was seen at the very beginning at the urgent treatment center and prescribed a course of steroids which did not help. Patient reports that he may subjectively have a fever but is unsure because he has not taken 1. He denies hemoptysis hematochezia melena nausea vomiting diarrhea. Patient reports that his cough is nonproductive but pervasive Related Data Home Medications Medication Instructions Recorded Confirmed atorvastatin 40 mg tablet 40 mg PO DAILY 12/13/23 12/13/23 Previous Rx's Medication Instructions Recorded prednisone 20 mg tablet 20 mg PO BID #10 tabs 12/13/23 albuterol sulfate 90 mcg/actuation 7 inh inhalation Q2H PRN shortness 12/23/23 aerosol inhaler of breath or wheezing #6.7 grams amoxicillin 875 mg-potassium 1 tab PO BID #20 tabs 12/23/23 clavulanate 125 mg tablet azithromycin 500 mg tablet See Rx Instructions PO .COMPLEX #9 12/23/23 tabs [id number]-dfibahgzxaedlkh-SV 5 ml PO Q6H PRN cold symptoms #118 12/23/23 2 mg-30 mg-10 mg/5 mL oral syrup mL (Bromfed DM) prednisone 50 mg tablet 50 mg PO DAILY 7 days #7 tabs 12/23/23 Allergies Allergy/AdvReac Type Severity Reaction Status Date / Time No Known Allergies Allergy Verified 03/27/21 13:56 PFS <VERONICA Jones - Last Filed: 12/23/23 23:20> [facility] Disclaimer: The information contained in this section may have been updated after the patient was seen, as this information can be updated by other users. Medical History , CLIENT SERVICE REPRESENTATIVE) Urinary tract infection Asthma Hyperlipidemia Social History , CLIENT SERVICE REPRESENTATIVE) Smoking Status: Unknown if ever smoked alcohol intake: never current occupational status: other Travel in the last 8 weeks: None <VERONICA Jones - Last Filed: 12/23/23 23:20> ROS Obtained: Yes Systems reviewed as appropriate & no additional complaints except as documented Physical Exam <VERONICA Jones - Last Filed: 12/23/23 23:20> General General appearance: alert and in no apparent distress Head Head exam: atraumatic and normal inspection Eye Eye exam: Present normal appearance, PERRL and EOMI ENT ENT exam: Present normal exam, normal oropharynx and mucous membranes moist Neck Neck exam: Present normal inspection and trachea midline Chest Chest inspection: Present normal inspection and symmetric chest wall rise Respiratory Respiratory exam: Present normal lung sounds bilaterally and other (Patient does have a very coarse dry cough); Absent respiratory distress, wheezes, stridor or accessory muscle use Cardiovascular Cardiovascular exam: Present regular rate, normal rhythm and normal heart sounds Extremities Exam Extremities exam: Present normal inspection and full ROM Neurological Exam Neurological exam: Present alert, oriented X3 and CN II-XII intact Medical Decision Making <VERONICA Jones - Last Filed: 12/23/23 23:20> Medical Records Medical records reviewed: Yes I reviewed the patient's medical records. Suman Inquiry Pt receiving controlled substance: No Vital Signs: 12/23/23 20:52 12/23/23 22:43 Temperature 97.9 F 98.0 F Temperature Source Oral Oral Pulse Rate 78 Pulse Rate [Left] 83 Respiratory Rate 16 19 Blood Pressure 150/94 H Blood Pressure [Right Arm] 155/104 H Blood Pressure Mean [Right Arm] 121 02 Sat by Pulse Oximetry 100 Oxygen Delivery Method Room Air Room Air Lab Data Lab results reviewed: Yes I reviewed the patient's lab results. Orders (Tests/Meds): ED MEDICATIONS Discontinued Medications Generic Name Dose Route Start Last Admin Trade Name Freq PRN Reason Stop Dose Admin Albuterol/Ipratropium 6 ml 12/23/23 21:03 12/23/23 21:43 Ipratropium/Albuterol 3 Ml Neb IH 12/23/23 21:04 6 ml ONCE ONE Administration Amoxicillin/Clavulanate Potassium 1 each 12/23/23 22:28 12/23/23 22:36 Amoxicillin/Clavulanate Potassium 875/125mg Tablet PO 12/23/23 22:29 1 each ONCE ONE Administration Azithromycin 500 mg 12/23/23 22:28 12/23/23 22:36 Azithromycin 250mg Tablet PO 12/23/23 22:29 500 mg ONCE ONE Administration Dexamethasone Sodium Phosphate 10 mg 12/23/23 21:03 12/23/23 21:31 Dexamethasone 4mg/Ml 5ml Mdv IV 12/23/23 21:04 10 mg ONCE ONE Administration ORDERS Category Date Time Status Chest XR 2 view (NOT portable) [XR chest 2V] Stat Exams 12/23/23 21:03 Completed CBC w/Auto Diff [Complete Blood Count Auto Diff] Stat Lab 12/23/23 21:03 Ordered CMP [Comprehensive Metabolic Panel] Stat Lab 12/23/23 21:04 Ordered Full Resp Panel w/COVID ([facility]) Routine Lab 12/23/23 21:05 Received Magnesium Stat Lab 12/23/23 21:04 Ordered Medical Decision Narrative: In summary patient is a 48-year-old male who presents to the emergency department for evaluation of 11 days of dry cough. Patient is hemodynamically stable upon arrival, afebrile. Zickel exam is remarkable for a coarse dry nonproductive cough at the time of exam breath sounds are clear and equal bilaterally to the bases without adventitious sounds.. Differential diagnosis includes postviral cough versus bronchitis versus ongoing viral bacterial respiratory illness CHF etc. Initial workup will be conducted with hematologic labs respiratory panel plain film chest x-ray. Initial interventions include crystalloid bolus Toradol Tylenol Decadron DuoNeb. Initial workup reviewed by me does show that the patient has a white count of 21,000 with an absolute neutrophil count of 17.9 but did take a 5-day course of steroids recently. The remainder of his hematologic investigations are nonactionable. Patient did have 3+ bacteria in his urine with 20-50 white cells but actually has no urinary symptoms. Upon repeat evaluation patient reported complete resolution of his constitutional symptoms after initial intervention. Given this patient is appropriate for discharge with oral antibiotics first dose given here metered-dose inhaler and strict return precautions. Patient advises he is PCP within 48 hours. <Quoc Tan MD - Last Filed: 12/23/23 23:23> Vital Signs: 12/23/23 20:52 12/23/23 22:43 Temperature 97.9 F 98.0 F Temperature Source Oral Oral Pulse Rate 78 Pulse Rate [Left] 83 Respiratory Rate 16 19 Blood Pressure 150/94 H Blood Pressure [Right Arm] 155/104 H Blood Pressure Mean [Right Arm] 121 02 Sat by Pulse Oximetry 100 Oxygen Delivery Method Room Air Room Air Orders (Tests/Meds): ED MEDICATIONS Discontinued Medications Generic Name Dose Route Start Last Admin Trade Name Freq PRN Reason Stop Dose Admin Albuterol/Ipratropium 6 ml 12/23/23 21:03 12/23/23 21:43 Ipratropium/Albuterol 3 Ml Neb IH 12/23/23 21:04 6 ml ONCE ONE Administration Amoxicillin/Clavulanate Potassium 1 each 12/23/23 22:28 12/23/23 22:36 Amoxicillin/Clavulanate Potassium 875/125mg Tablet PO 12/23/23 22:29 1 each ONCE ONE Administration Azithromycin 500 mg 12/23/23 22:28 12/23/23 22:36 Azithromycin 250mg Tablet PO 12/23/23 22:29 500 mg ONCE ONE Administration Dexamethasone Sodium Phosphate 10 mg 12/23/23 21:03 12/23/23 21:31 Dexamethasone 4mg/Ml 5ml Mdv IV 12/23/23 21:04 10 mg ONCE ONE Administration ORDERS Category Date Time Status Chest XR 2 view (NOT portable) [XR chest 2V] Stat Exams 12/23/23 21:03 Completed CBC w/Auto Diff [Complete Blood Count Auto Diff] Stat Lab 12/23/23 21:03 Ordered CMP [Comprehensive Metabolic Panel] Stat Lab 12/23/23 21:04 Ordered Full Resp Panel w/COVID ([facility]) Routine Lab 12/23/23 21:05 Received Magnesium Stat Lab 12/23/23 21:04 Ordered Radiology Data #1: Image(s): Chest Image Reviewed: Yes I reviewed the patient's radiology results Personally interpreted chest x-ray, no acute intrathoracic abnormality. See radiology read for final interpretation. Quoc Tan MD Critical Care <VERONICA Jones - Last Filed: 12/23/23 23:20> Critical Care Time Critical Care Time: No
--- NOTE | 2023-12-23 21:03 | XR_ITS ---
PROCEDURE INFORMATION: Exam: XR Chest Exam date and time: 12/23/2023 9:16 PM Age: 48 years old Clinical indication: Cough; Additional info: Cough wheezing TECHNIQUE: Imaging protocol: Radiologic exam of the chest. Views: 2 views. COMPARISON: CR XR CHEST PORTABLE 03/27/2021 3:24 PM FINDINGS: Lungs: There is mild coarsening of the bronchovascular markings with hyperinflation suggesting underlying obstructive airways disease. Pleural spaces: No large effusion or pneumothorax. Heart/Mediastinum: Stable cardiac and mediastinal contours. Bones/joints: No evidence of acute osseous abnormalities within the visualized portions of the thoracic spine and ribs. Osseous structures appear appropriate for patient age. IMPRESSION: No dense parenchymal consolidation, pleural effusion, or pneumothorax.
[2023-12-23 21:09] LABS: Adenovirus,PCR Not Detected (NotDetected); Bordetella Pertussis Not Detected (NotDetected); Chlamydophila Pneumoniae, PCR Not Detected (NotDetected); Coronavirus 19, PCR Not Detected (NotDetected); Coronavirus 229E Not Detected (NotDetected); Coronavirus NL63 Not Detected (NotDetected); Coronavirus OC43 Not Detected (NotDetected); Coronovirus HKU1,PCR Not Detected (NotDetected); Human Metapneumovirus Not Detected (NotDetected); Influenza A, PCR Not Detected (NotDetected); Influenza AH1, 2009 Not Detected (NotDetected); Influenza AH1, PCR Not Detected (NotDetected); Influenza AH3,PCR Not Detected (NotDetected); Influenza B, PCR Not Detected (NotDetected); Mycoplasma Pneumoniae, PCR Not Detected (NotDetected); Parainfluenza 1, PCR Not Detected (NotDetected); Parainfluenza 2, PCR Not Detected (NotDetected); Parainfluenza 3, PCR Not Detected (NotDetected); Parainfluenza 4, PCR Not Detected (NotDetected); Respiratory Syncytial Virus Not Detected (NotDetected); Rhinovirus/Enterovirus Not Detected (NotDetected)
--- NOTE | 2023-12-23 21:20 | PC.NURSE ---
called rt for breathing tx
[2023-12-23] MEDS: DEXAMETHASONE 4MG/ML 5ML MDV 10 MG IV (21:31)
[2023-12-23] MEDS: IPRATROPIUM/ALBUTEROL 3 ML NEB 6 ML IH (21:43)
[2023-12-23] MEDS: AZITHROMYCIN 250MG TABLET 500 MG PO (22:36)
[2023-12-23] MEDS: AMOXICILLIN/CLAVULANATE POTASSIUM 875/125MG TABLET 1 EACH PO (22:36)
[2023-12-23 22:43] VITALS: BP 150/94; PULSE 78; RESP 19; TEMP 36.7; O2SAT 98
== END 2023-12-23 22:44 | disposition home or self-care (01) ==
PROVIDERS: Physician Assistant; Emergency Provider Emergency Medicine; PCP Family Medicine
DX: N30.01 Acute cystitis with hematuria (principal); J22 Unspecified acute lower respiratory infection; R05.1 Acute cough
CPT/HCPCS: 71046; 87581; 87632; 87635; 87798; 96374; 99284; J7620